=== PATIENT | male | born 1990 | race Caucasian/White ===

== ENCOUNTER → 2017-06-20 | Outpatient (CLI) | payer OTHER ==
[2017-04-29 17:53] VITALS: BMI 31.6
[2017-06-20 12:59] VITALS: BP 140/84; PULSE 66; RESP 16; TEMP 98.1
--- NOTE | 2017-06-20 13:43 | P.HPIM ---
History of Present Illness H&P Date: 06/20/17 Chief Complaint: low back and left > right LE pain This is a 27-year-old patient referred by Dr. Stringer for chronic pain in low back with radiation to both legs, L >> R with numbness and tingling all the way to the toes. Patient has been taking medications from primary care physician including [place] medications with only a small amount of relief. Patient denies adverse drug effects from medications. Patient also denies new-onset weakness, bowel/bladder incontinence, or any other signs or symptoms of cauda equina syndrome. There are no signs of acute intoxication, and no indications of medication diversion or overuse. Patient notes that pain worsens significantly with standing and walking and improves with rest, ice and medication. Patient has used several types of medications for pain, including NSAIDS, OPIOIDS ([place]). Patient HAS NOT had surgery. Patient HAS NOT had injections previously. Patient HAS had physical therapy recently without significant benefit. In addition to above, 13-point review of systems is also negative for chest pain , shortness of breath, changes in vision, changes in hearing, new onset weakness , abdominal pain, diarrhea, extreme fatigue, malaise, fever, skin changes, homicidal or suicidal ideation, or bowel or bladder incontinence. Vital Signs: Reviewed in EMR Gen: WDWN, AAOx3, NAD HEENT: NCAT, EOMI, hearing grossly normal Pulm: resp unlabored Abd: soft, NT, ND Neck: supple, trachea midline ROM in flexion lumbar spine: reduced ROM in extension lumbar spine: reduced Lumbar paravertebral tenderness: + Facet loading: + L side SI joint tenderness: neg Salvador's test: + L side Straight leg raise: ++ L side at 5 degrees Lower extremity: decreased ROM dorsiflexion/plantarflexion strength, hip flexion/extension, and knee flexion/extension secondary to pain Neuro: CN II-XII grossly intact, muscle strength lower extremities PRESERVED Past Medical History Past Medical History: GERD/Reflux, Musculoskeletal Disorder, Osteoarthritis (OA) Additional Past Medical History / Comment(s): IBS. 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 History of Any Multi-Drug Resistant Organisms: None Reported Past Surgical History: Hernia Repair, Orthopedic Surgery Additional Past Surgical History / Comment(s): RT ELBOW SX. LT KNEE SX W/3 SCREWS. ING HERNIA Past Anesthesia/Blood Transfusion Reactions: No Reported Reaction Past Psychological History: Depression Additional Psychological History / Comment(s): PT STATES ALSO SUFFERS FROM [place] W/ HOMICIDAL AND SUCIDAL THOUGHTS AT TIMES - SEES THERAPIST IN [place]. NO CURRENT PLANS Smoking Status: Current every day smoker Past Alcohol Use History: Occasional Additional Past Alcohol Use History / Comment(s): SMOKED 1 1/2 PPD, NOW 1/2 PPD SINCE AGE 10 Past Drug Use History: None Reported - Past Family History Father Family Medical History: Cancer Medications and Allergies Home Medications Medication Instructions Recorded Confirmed Type HYDROcodone/APAP 5-325MG [[place] 1 tab PO BID 04/29/17 06/20/17 History 5-325] Sertraline [Zoloft] 50 mg PO DAILY 04/29/17 06/20/17 History traZODone HCL 25 mg PO HS 04/29/17 06/20/17 History Calcium Carbonate [Tums] 500 - 1,000 mg PO TID PRN 06/16/17 06/20/17 History Ibuprofen [Motrin] 600 mg PO Q6HR PRN 06/16/17 06/20/17 History Allergies Allergy/AdvReac Type Severity Reaction Status Date / Time amoxicillin AdvReac Itching Verified 06/20/17 12:48 tramadol AdvReac Itching Verified 06/20/17 12:48 Physical Exam Vitals: Vital Signs Temp Pulse Resp BP 06/20/17 12:49 98.1 F 66 16 140/84 Results Comments: MRI lumbar spine without contrast dated 02/23/2017 demonstrates a mild broad- based central protrusion of the L4-L5 disc with caudal migration of the disc below the level. There is slight contact of the descending right L5 nerve root with minimal bilateral facet hypertrophy. There is minimal to mild bilateral inferior neural foraminal narrowing. At the L5-S1 level there is a mild right paracentral foraminal protrusion with slight contact of the descending right S1 nerve root. There is no central canal stenosis and no neural foraminal narrowing. Assessment and Plan (1) Lumbar radiculitis Status: Acute (2) Lumbar disc herniation Status: Acute Plan: 1. Explanation: Opioid and psychological risk scores were reviewed. Diagnoses , prognoses, and multiple treatment options including but not limited to physical therapy, interventional therapies, adjuvant medical therapies, narcotic medication therapies, and surgery were discussed with the patient and all questions were answered to the patient's satisfaction. 2. Opioid agreement: no opioids prescribed today 3. Counseling: The patient was counseled extensively on SMOKING CESSATION, BODY MASS INDEX, EXERCISE. Specifically, the patient was instructed regarding the importance of smoking cessation, weight control, and exercise in the context of both chronic pain and overall health. 4. Procedures: LESI series 5. Consultations: none 6. Investigations: none 7. Medications: none prescribed 8. Disposition: f/u for procedure as scheduled. I believe that this patient, with an uncomplicated spine and of a young age, would be a good candidate for spine surgery if limited relief from ESIs. PQRS measures: 1-Patient's medications are documented in the chart. 2-Tobacco use is positive, counseling given 3-Patient has not had a pneumococcal vaccine. 4-Advanced care planning discussed, patient unable to give. 5-Opioid contract NOT signed with the patient. 6-Pain positive, follow-up visit or procedure scheduled 7-Patient's blood pressure measured and documented, and patient will follow up with the primary care due to hypertension. 8-Patient's weight was measured, and body mass index ABOVE the normal limits, and counseling was done. Patient instructed to follow up with PCP. 9-Patient WAS NOT identified as an unhealthy alcohol user. Time with Patient: Greater than 30
== END ==
LOC: PNWHC3 12:42
PROVIDERS: ATTEND Anesthesiology
DX: M51.16 Intervertebral disc disorders with radiculopathy, lumbar region (principal); Z79.899 Other long term (current) drug therapy; Z88.0 Allergy status to penicillin; Z88.6 Allergy status to analgesic agent
CPT/HCPCS: 99201